=== PATIENT | female | born 1985 | race Caucasian/White ===

== ENCOUNTER 2018-04-23 10:02 | Emergency (ER) | payer SELFPAY ==
[~2018-04-23] VITALS: Ht 152.4 cm; Wt 116.0 kg
[2018-04-23 10:04] VITALS: Ht 152.4 cm; Wt 116.0 kg
[2018-04-23] MEDS ORDERED: SOD CHLORIDE 0.9% 1,000 ML IV STA (10:21)
[2018-04-23] MEDS ORDERED: KETOROLAC 30 MG INJ IV STA (10:21)
[2018-04-23] MEDS ORDERED: ONDANSETRON 4 MG INJ IV STA (10:21)
[2018-04-23] MEDS ORDERED: DIPHENHYDRAMINE 50 MG INJ IV STA (10:21)
[2018-04-23] MEDS ORDERED: ACETAMINOPHEN 500 MG TAB PO STA (10:36)
[2018-04-23] MEDS ORDERED: NAPR-985 PO (11:21)
[2018-04-23] MEDS ORDERED: AMOX1TAB10 PO (11:21)
[2018-04-23] MEDS ORDERED: PSEU-79 PO (11:21)
[2018-04-23 11:40] VITALS: BP 110/69; PULSE 68; RESP 16
--- NOTE | 2018-04-23 12:36 | ERD ---
ER Documentation Chief Complaint Chief Complaint head pain, sinus congestion and cough x 5 days HPI 32-year-old female presenting with nasal congestion and cough times 5 days. Patient has had a headache and he describes it in the frontal portion of the head and states is constant. She has had tactile fevers and has a dry cough. Denies any vomiting. Denies visual changes. Denies other medical problems. NKDA. Surgical history . Social history denies ROS All systems reviewed and are negative except as per history of present illness. Medications Home Meds Active Scripts Naproxen* (Naprosyn*) 500 Mg Tablet, 500 MG PO BID PRN for PAIN AND/OR INFLAMMATION, #30 TAB Prov:PAUL MORENO PA-C 04/23/18 Pseudoephedrine Hcl* (Suphedrin*) 30 Mg Tablet, 30 MG PO Q6 PRN for CONGESTION, #30 TAB Prov:PAUL MORENO PA-C 04/23/18 Amoxicillin/Potassium Clav (Amox-Clav 875-125 mg Tablet) 875-125 mg Tab, 1 TAB PO BID for 7 Days, #14 TAB Prov:PAUL MORENO PA-C 04/23/18 Allergies Allergies: Coded Allergies: No Known Allergy (Verified Allergy, Unknown, 01/10/09) PMhx/Soc Medical and Surgical Hx: pt denies Medical Hx, pt denies Surgical Hx Hx Alcohol Use: No Hx Substance Use: No Hx Tobacco Use: No Smoking Status: Never smoker FmHx Family History: No diabetes, No coronary disease, No other Physical Exam Vitals Vital Signs Date Temp Pulse Resp B/P (MAP) Pulse Ox O2 O2 Flow FiO2 Time Delivery Rate 04/23/18 98.7 68 16 110/69 99 Room Air 11:40 (83) 04/23/18 99.3 70 18 126/80 97 10:04 (95) Physical Exam GENERAL: The patient is well-appearing, well-nourished, in no acute distress HEENT: Atraumatic. Conjunctivae are pink. Pupils equal, round, and reactive to light. There is no scleral icterus. Tympanic membranes clear bilaterally. Oropharynx clear. CHEST: Clear to auscultation bilaterally. There are no rales, wheezes or rhonchi. HEART: Regular rate and rhythm. No murmurs, clicks, rubs or gallops. NEUROLOGIC: Alert and oriented. Cranial nerves II through XII intact. Motor strength in all 4 extremities with 5 out of 5 strength. Sensation grossly intact. Normal speech and gait. Results 24 hrs Laboratory Tests Test 04/23/18 10:34 04/23/18 10:36 Bedside Urine pH (LAB) 6.0 Bedside Urine Protein (LAB) 1+ Bedside Urine Glucose (UA) Negative Bedside Urine Ketones (LAB) 3+ Bedside Urine Blood 1+ Bedside Urine Nitrite (LAB) Negative Bedside Urine Leukocyte Esterase (L Negative POC Beta HCG, Qualitative NEGATIVE Current Medications Medications Dose Sig/Cooper Start Time Status Last (Trade) Ordered Route PRN Stop Time Admin Dose Reason Admin Sodium 1,000 ml @ Q1H STAT 04/23/18 DC 04/23/18 Chloride 1,000 mls/hr IV 10:21 10:33 04/23/18 11:20 Ondansetron 4 mg ONCE STAT 04/23/18 DC 04/23/18 HCl (Zofran IV 10:21 10:33 Inj) 04/23/18 10:23 Ketorolac 30 mg ONCE STAT 04/23/18 DC 04/23/18 Tromethamine IV 10:21 10:40 (Toradol) 04/23/18 10:23 25 mg ONCE STAT 04/23/18 DC 04/23/18 Diphenhydrami IV 10:21 10:33 ne HCl 04/23/18 10:23 (Benadryl) 1,000 mg ONCE STAT 04/23/18 DC Acetaminophen PO 10:36 (Tylenol 04/23/18 10:37 Tab) Procedures/MDM ER course: 1 L normal saline given ED. Toradol Benadryl and Zofran given ED and patient symptoms improved. Name: 32-year-old female presenting with headache. I have low suspicion for intracranial hemorrhage or neuro deficit. I believe patient likely has sinusitis which is causing pressure and pain behind her eyes and continued headache. Patient is discharged with antibiotics and supportive medications. Patient is told if symptoms change or worsen to return immediately to the ER. I do not feel that CT scan was indicated. Patient is discharged stricter precautions. All questions answered at discharge Departure Diagnosis: Primary Impression: Headache Condition: Stable Patient Instructions: Self-Care for Headaches Referrals: COMMUNITY CLINICS YOU HAVE RECEIVED A MEDICAL SCREENING EXAM AND THE RESULTS INDICATE THAT YOU DO NOT HAVE A CONDITION THAT REQUIRES URGENT TREATMENT IN THE EMERGENCY DEPARTMENT. FURTHER EVALUATION AND TREATMENT OF YOUR CONDITION CAN WAIT UNTIL YOU ARE SEEN IN YOUR DOCTORS OFFICE WITHIN THE NEXT 1-2 DAYS. IT IS YOUR RESPONSIBILITY TO MAKE AN APPOINTMENT FOR FOLOW-UP CARE. IF YOU HAVE A PRIMARY DOCTOR --you should call your primary doctor and schedule an appointment IF YOU DO NOT HAVE A PRIMARY DOCTOR YOU CAN CALL OUR PHYSICIAN REFERRAL HOTLINE AT IF YOU CAN NOT AFFORD TO SEE A PHYSICIAN YOU CAN CHOSE FROM THE FOLLOWING [facility] CLINICS [facility] [id number] [facility]. [facility] [id number] [facility] [facility] [facility] [id number] [facility] [facility] [address] [facility]. [facility] [address] [facility]. [facility]. [address] Additional Instructions: FOLLOW UP WITH YOUR PRIMARY CARE PHYSICIAN TOMORROW.Return to this facility if you are not improving as expected. PAUL MORENO PA-C Apr 23, 2018 12:36
== END 2018-04-23 11:41 | disposition home or self-care (01) ==
LOC: FTE 10:02
DX: R51 Headache (principal)
CPT/HCPCS: 81003; 81025; 96361; 96374; 96375; 99284; J1200; J1885; J2405; J7030